=== PATIENT | male | born 1975 | race African-American/Black ===

== ENCOUNTER 2016-11-17 10:29 | Inpatient (IN) | payer OTHER ==
[~2016-11-17] VITALS: Ht 165.1 cm; Wt 76.8 kg
[~2016-11-17 10:29] MED LIST: ADVAIR 250-501 EACH IH; ALBUTEROL SULF8.5 GM IH; ALBUTEROL2.5 MG/3 M IH; ATIVAN2 MG PO; DAILY VALUE1 EACH PO; DELTASONE1 MG PO; EFFEXOR XR150 MG PO; ENALAPRIL MALEAT5 MG PO; FOLIC ACID1 MG PO; HYDROCHLOROTH12.5 M3 PO; HYDROCODON-ACE1 EAC7 PO; KEFLEX500 MG PO; LEVEMIR FL100 UNIT/1 SC; LEVOTHYROXINE50 MCG PO; LIBRIUM25 MG PO; MIRTAZAPINE15 MG PO; NAPROSYN500 MG PO; NAPROXEN500 MG PO; NICOTINE PATCH1 EAC2 TD; NICOTINE PATCH1 EACH TD; NOHOMEMEDS; NOVOLOG 10100 UNITS/ SC; OCUVITE TABLET1 EACH PO; OMEPRAZOLE20 MG PO; PANTOPRAZOLE SO40 MG PO; PAROXETINE HCL10 MG PO; PAXIL; PAXIL10 MG PO; PAXIL30 MG PO; PREDNISONE20 MG PO; PRILOSEC10 MG PO; PRILOSEC20 MG PO; PROAIR HFA8.5 GM IH; PROMETHAZINE HC25 M1 PO; PROVENTIL17 G1 IH; THIAMINE HCL100 MG PO; ULTRAM50 MG PO; VALIUM10 MG PO; VENTOLIN HFA18 GM IH; VITAMIN B-1100 MG PO; ZOLPIDEM TARTRAT5 MG PO
[2016-11-17 11:15] LABS: HEMATOCRIT 51.4 % (38.0-50.0); MCH 31.4 PG (29.0-34.0); MCHC 36.2 G/DL (30.0-36.0); MCV 86.7 FL (86-99); MEAN PLAT.VOLUME 12.8 uM^3 (9.0-12.4); PLATELET COUNT 274 K/uL (156-360); RBC DIS.WIDTH-CV 12.1 % (11.8-14.6); RBC DIS.WIDTH-SD 38.5 % (39-53); RED BLOOD COUNT 5.93 M/uL (4.00-5.50); WHITE BLOOD COUNT 13.3 K/uL (4.1-10.2)
[2016-11-17 11:26] LABS: CHLORIDE 91 mEq/L (99-109); POTASSIUM 3.5 mEq/L (3.7-5.4); SODIUM 137 mEq/L (136-147)
[2016-11-17 11:29] LABS: GLUCOSE 163 mg/dL (70-99)
[2016-11-17 11:30] LABS: ANION GAP 22 MEQ/L (2-14)
[2016-11-17 11:31] LABS: TOTAL BILIRUBIN 1.1 mg/dL (0.0-1.0)
[2016-11-17 11:32] LABS: ALKALINE PHOSPHATASE 117 IU/L (3-129); SERUM ETHYL ALCOHOL 190 mg/dL
[2016-11-17 11:33] LABS: GFR ESTIMATE (CALCULATED) > 59 mL/min/
[2016-11-17 11:34] LABS: UREA NITROGEN (BUN) 15 mg/dL (9-23)
[2016-11-17 11:50] LABS: ADD MIUA? YES; BILIRUBIN NEGATIVE; BLOOD NEGATIVE; COLOR AMBER ((YELLOW)); GLUCOSE (STRIP) >=500; KETONES 5; LEUKOCYTES NEGATIVE; NITRITE NEGATIVE; PROTEIN (STRIP) >=500; SPECIFIC GRAVITY 1.023 (1.000-1.030); UROBILINOGEN 0.2 MG/DL (0.2-1.0)
[2016-11-17 12:00] LABS: BACTERIA RARE /HPF; EPITHELIAL CELLS RARE /HPF; HYALINE CASTS 30-40 /LPF; MUCUS 1+ /LPF; RED BLOOD CELLS 0-5 /HPF (0-5); WHITE BLOOD CELLS 0-5 /HPF (0-5)
[2016-11-17 12:02] LABS: ADD MEDTOX COMMENT Y; AMPHETAMINE NEGATIVE (500 ng/mL); BARBITURATES NEGATIVE (200 ng/mL); BENZODIAZEPINES NEGATIVE (150 ng/mL); COCAINE NEGATIVE (150 ng/mL); INTERNAL CONTROLS VALID? YES; METHADONE NEGATIVE (200 ng/mL); METHAMPHETAMINE NEGATIVE (500 ng/mL); OPIATES (MORPHINE) PRESUMPTIVE POSITIVE (100 ng/mL); OXYCODONE NEGATIVE (100 ng/mL); PHENCYCLIDINE NEGATIVE (25 ng/mL); PROPOXYPHENE NEGATIVE (300 ng/mL); THC CANNABINOIDS NEGATIVE (50 ng/mL); TRICYCLIC ANTIDEPRESSANTS NEGATIVE (300 ng/mL)
[2016-11-17 12:41] LABS: OPIATES QUANTITATIVE VALUE 0 NG/ML
[2016-11-17 14:02] LABS: MAGNESIUM 2.3 mg/dL (1.3-2.7)
[2016-11-17] MEDS ORDERED: PRAZOSIN HCL2 MG PO (17:02)
[2016-11-17] MEDS ORDERED: NOVOLOG 10100 UNITS/ SC (17:02)
[2016-11-17] MEDS ORDERED: QUETIAPINE FUMA25 MG PO (17:03)
[2016-11-17] MEDS ORDERED: LISINOPRIL2.5 MG PO (17:03)
[2016-11-17] MEDS ORDERED: ATARAX,VISTARIL50 MG PO (17:03)
[2016-11-17] MEDS ORDERED: LAMOTRIGINE200 MG PO (17:03)
[2016-11-17] MEDS ORDERED: SAPHRIS10 MG SL (17:04)
[2016-11-17] MEDS ORDERED: OMEPRAZOLE40 M1 PO (17:04)
[2016-11-17] MEDS ORDERED: BUSPAR30 MG PO (17:04)
[2016-11-17 21:20] VITALS: BP 141/96
[2016-11-17 23:41] LABS: POINT-OF-CARE METER ID UU14174225
[2016-11-17 23:43] VITALS: BP 135/79
[2016-11-18 03:51] VITALS: BP 128/70
[2016-11-18 06:00] LABS: ANION GAP 8 MEQ/L (2-14); CHLORIDE 101 MEQ/L (99-109); GFR ESTIMATE (CALCULATED) > 59 mL/min/; MAGNESIUM 1.8 mg/dl (1.3-2.7); SAMPLE HEMOLYSIS CHECK 0; SAMPLE ICTERIC CHECK 0; SAMPLE LIPEMIA CHECK 0; SODIUM 138 MEQ/L (136-147); UREA NITROGEN (BUN) 13 mg/dL (9-23)
[2016-11-18 06:03] LABS: GLUCOSE 334 mg/dL (70-99); POTASSIUM 4.9 MEQ/L (3.7-5.4)
[2016-11-18 06:11] LABS: HEMATOCRIT 40.5 % (38.0-50.0); MCHC 34.8 G/DL (30.0-36.0); RBC DIS.WIDTH-CV 12.2 % (11.8-14.6); RBC DIS.WIDTH-SD 41.4 % (39-53); WHITE BLOOD COUNT 5.7 K/uL (4.1-10.2)
[2016-11-18 07:15] LABS: MEAN PLAT.VOLUME 11.1 uM^3 (9.0-12.4)
[2016-11-18 07:18] LABS: PLATELET COUNT 134 K/uL (156-360)
[2016-11-18 07:22] VITALS: BP 128/70
[2016-11-18 07:44] LABS: POINT-OF-CARE METER ID UU13113717
[2016-11-18 11:12] LABS: POINT-OF-CARE METER ID UU14174225
[2016-11-18 11:19] VITALS: BP 124/61
[2016-11-18] MEDS ORDERED: FOLIC ACID1 MG PO (12:45)
[2016-11-18] MEDS ORDERED: THERAGRAN1 TABLET PO (12:45)
[2016-11-18] MEDS ORDERED: Thiamine,Vitamin B1 PO (12:46)
[2016-11-18] MEDS ORDERED: CHLORDIAZEPOXID25 MG PO (12:46)
[2016-11-18 15:35] VITALS: BP 127/67
== END 2016-11-18 17:43 | disposition home or self-care (01) | DRG 897 ==
LOC: EME 10:29 → EDOF 17:08 → 5SOUTH 17:08
PROVIDERS: Emergency Medicine; Internal Medicine; Physician Assistant
DX: F10.239 Alcohol dependence with withdrawal, unspecified (principal); E87.2 Acidosis; E86.0 Dehydration; E87.6 Hypokalemia; E11.65 Type 2 diabetes mellitus with hyperglycemia; Y90.6 Blood alcohol level of 120-199 mg/100 ml; F31.9 Bipolar disorder, unspecified; I10 Essential (primary) hypertension; F17.210 Nicotine dependence, cigarettes, uncomplicated; J45.909 Unspecified asthma, uncomplicated; N28.9 Disorder of kidney and ureter, unspecified; K21.9 Gastro-esophageal reflux disease without esophagitis; Z79.4 Long term (current) use of insulin
CPT/HCPCS: 80048; 80053; 81003; 82948; 83605; 83735; 84999; 85027; 90839; 94640; 99281; 99284; G0480; J1650; J1815; J2060; J2405; J3411; J3480; J7030

== ENCOUNTER 2017-02-24 15:49 | Inpatient (IN) | payer OTHER ==
[~2017-02-24] VITALS: Ht 165.1 cm; Wt 67.3 kg
[~2017-02-24 15:49] MED LIST changes: +ATARAX,VISTARIL50 MG PO; +BUSPAR30 MG PO; +CHLORDIAZEPOXID25 MG PO; +LAMOTRIGINE200 MG PO; +LISINOPRIL2.5 MG PO; +OMEPRAZOLE40 M1 PO; +PRAZOSIN HCL2 MG PO; +SAPHRIS10 MG SL; +SEROQUEL100 MG PO; +THERAGRAN1 TABLET PO; +Thiamine,Vitamin B1 PO
[2017-02-24 16:26] LABS: ADD MIUA? YES; BILIRUBIN NEGATIVE; BLOOD SMALL; COLOR YELLOW ((YELLOW)); GLUCOSE (STRIP) >=500; KETONES 80; LEUKOCYTES NEGATIVE; NITRITE NEGATIVE; PROTEIN (STRIP) 100; SPECIFIC GRAVITY 1.023 (1.000-1.030); UROBILINOGEN 0.2 MG/DL (0.2-1.0)
[2017-02-24 16:33] LABS: EOSINOPHIL (%) 0 % (0-5); HEMATOCRIT 46.6 % (38.0-50.0); IMMATURE GRANULOCYTE (%) 1.2 % (0.0-0.7); IMMATURE GRANULOCYTE COUNT 0.2 K/uL; INSTRUMENT ABS NEUTROPHIL CT 13.1 K/uL; LYMPHOCYTE COUNT 1.1 K/uL (1.0-2.8); MCH 30.2 PG (29.0-34.0); MCHC 33.7 G/DL (30.0-36.0); MCV 89.6 FL (86-99); MONOCYTE COUNT 0.6 K/uL (0-0.8); NEUTROPHIL (%) 87.1 % (45-76); NEUTROPHIL COUNT 13.1 K/uL (1.8-6.4); PLATELET COUNT 436 K/uL (156-360); RBC DIS.WIDTH-CV 12.8 % (11.8-14.6); RBC DIS.WIDTH-SD 42.3 % (39-53); WHITE BLOOD COUNT 15.1 K/uL (4.1-10.2)
[2017-02-24 16:38] LABS: BACTERIA NONE SEEN /HPF; EPITHELIAL CELLS RARE /HPF; MUCUS TRACE /LPF; RED BLOOD CELLS 0-5 /HPF (0-5); UNCLASSIFIED CASTS 0-5 /LPF; WHITE BLOOD CELLS 0-5 /HPF (0-5)
[2017-02-24 16:40] LABS: CHLORIDE 88 mEq/L (99-109); POTASSIUM 5.4 mEq/L (3.7-5.4); SODIUM 132 mEq/L (136-147)
[2017-02-24 16:43] LABS: ANION GAP 37 MEQ/L (2-14)
[2017-02-24 16:44] LABS: TOTAL BILIRUBIN 1.1 mg/dL (0.0-1.0)
[2017-02-24 16:45] LABS: ALKALINE PHOSPHATASE 175 IU/L (3-129)
[2017-02-24 16:46] LABS: GFR ESTIMATE (CALCULATED) 58 mL/min/
[2017-02-24 16:47] LABS: UREA NITROGEN (BUN) 18 mg/dL (9-23)
[2017-02-24 16:50] LABS: GLUCOSE 547 mg/dL (70-99)
[2017-02-24] MEDS ORDERED: FAMOTIDINE20 MG PO (17:58)
[2017-02-24] MEDS ORDERED: THERAGRAN1 TABLET PO (17:58)
[2017-02-24] MEDS ORDERED: FOLIC ACID1 MG PO (17:58)
[2017-02-24] MEDS ORDERED: VITAMIN B-1100 MG PO (17:58)
[2017-02-24] MEDS ORDERED: LYRICA75 MG PO (17:59)
[2017-02-24] MEDS ORDERED: VENTOLIN HFA18 GM IH (17:59)
[2017-02-24 18:22] LABS: Estimated Average Glucose 344 mg/dL (70-123); HEMOGLOBIN A1c (GLYCOHEMOGLOB) 13.6 % HGB (Below 5.7)
[2017-02-24 18:45] LABS: POINT-OF-CARE METER ID UU13113702
[2017-02-24 19:21] LABS: POINT-OF-CARE METER ID UU13113702
[2017-02-24 19:45] VITALS: BP 162/99
[2017-02-24 19:54] VITALS: BP 162/99
[2017-02-24 20:00] VITALS: BP 162/94
[2017-02-24 20:02] LABS: POINT-OF-CARE METER ID UU14208751
[2017-02-24 20:59] LABS: POINT-OF-CARE METER ID UU13113748
[2017-02-24 21:00] VITALS: BP 159/88
[2017-02-24 21:07] LABS: METH RESISTANT S AUREUS PCR NEGATIVE (NEGATIVE)
[2017-02-24 21:10] LABS: PROBE CHECK PASS; SPECIMEN PROCESSING CONTROL PASS
[2017-02-24 22:00] VITALS: BP 151/95
[2017-02-24 22:26] LABS: POINT-OF-CARE METER ID UU14208751
[2017-02-24 23:00] VITALS: BP 115/66
[2017-02-24 23:02] LABS: POINT-OF-CARE METER ID UU14208751
[2017-02-25] VITALS (13 sets, daily range): BP systolic 117–148; BP diastolic 68–100
[2017-02-25 00:04] LABS: POINT-OF-CARE METER ID UU14208751
[2017-02-25 00:50] LABS: SODIUM 131 mEq/L (136-147)
[2017-02-25 00:54] LABS: ANION GAP 12 MEQ/L (2-14)
[2017-02-25 00:56] LABS: GFR ESTIMATE (CALCULATED) > 59 mL/min/
[2017-02-25 00:57] LABS: POINT-OF-CARE METER ID UU13113803
[2017-02-25 00:57] LABS: UREA NITROGEN (BUN) 10 mg/dL (9-23)
[2017-02-25 01:20] LABS: GLUCOSE 211 mg/dL (70-99); POTASSIUM 3.8 mEq/L (3.7-5.4)
[2017-02-25 01:21] LABS: CHLORIDE 100 mEq/L (99-109)
[2017-02-25 01:57] LABS: POINT-OF-CARE METER ID UU14208751
[2017-02-25 03:06] LABS: POINT-OF-CARE METER ID UU14208751
[2017-02-25 04:08] LABS: POINT-OF-CARE METER ID UU14208751
[2017-02-25 05:01] LABS: POINT-OF-CARE METER ID UU14208751
[2017-02-25 06:05] LABS: ANION GAP 11 MEQ/L (2-14); CHLORIDE 99 MEQ/L (99-109); POTASSIUM 3.7 MEQ/L (3.7-5.4); SAMPLE HEMOLYSIS CHECK 0; SAMPLE ICTERIC CHECK 0; SAMPLE LIPEMIA CHECK 0; SODIUM 135 MEQ/L (136-147)
[2017-02-25 06:08] LABS: POINT-OF-CARE METER ID UU14208751
[2017-02-25 06:10] LABS: GFR ESTIMATE (CALCULATED) > 59 mL/min/; UREA NITROGEN (BUN) 10 mg/dL (9-23)
[2017-02-25 06:11] LABS: GLUCOSE 118 mg/dL (70-99)
[2017-02-25 06:58] LABS: POINT-OF-CARE METER ID UU14208751
[2017-02-25 08:15] LABS: POINT-OF-CARE METER ID UU14208751
[2017-02-25 08:16] LABS: ANION GAP 11 MEQ/L (2-14); CHLORIDE 98 MEQ/L (99-109); POTASSIUM 3.8 MEQ/L (3.7-5.4); SAMPLE HEMOLYSIS CHECK 0; SAMPLE ICTERIC CHECK 0; SAMPLE LIPEMIA CHECK 0; SODIUM 133 MEQ/L (136-147)
[2017-02-25 08:22] LABS: GFR ESTIMATE (CALCULATED) > 59 mL/min/; GLUCOSE 168 mg/dL (70-99); UREA NITROGEN (BUN) 10 mg/dL (9-23)
[2017-02-25 09:19] LABS: POINT-OF-CARE METER ID UU14208751
[2017-02-25 10:14] LABS: POINT-OF-CARE METER ID UU14208751
[2017-02-25 12:05] LABS: POINT-OF-CARE METER ID UU14208751
[2017-02-25 13:39] LABS: ANION GAP 13 MEQ/L (2-14); CHLORIDE 99 MEQ/L (99-109); POTASSIUM 4.1 MEQ/L (3.7-5.4); SAMPLE HEMOLYSIS CHECK 0; SAMPLE ICTERIC CHECK 0; SAMPLE LIPEMIA CHECK 0; SODIUM 135 MEQ/L (136-147)
[2017-02-25 13:44] LABS: GFR ESTIMATE (CALCULATED) > 59 mL/min/; GLUCOSE 232 mg/dL (70-99); UREA NITROGEN (BUN) 9 mg/dL (9-23)
[2017-02-25 15:17] LABS: POINT-OF-CARE METER ID UU13113702
[2017-02-25 16:07] LABS: ANION GAP 10 MEQ/L (2-14); CHLORIDE 99 MEQ/L (99-109); POTASSIUM 4.1 MEQ/L (3.7-5.4); SAMPLE HEMOLYSIS CHECK 0; SAMPLE ICTERIC CHECK 0; SAMPLE LIPEMIA CHECK 0; SODIUM 133 MEQ/L (136-147)
[2017-02-25 16:12] LABS: GFR ESTIMATE (CALCULATED) > 59 mL/min/; GLUCOSE 308 mg/dL (70-99); UREA NITROGEN (BUN) 8 mg/dL (9-23)
[2017-02-25 20:26] LABS: ANION GAP 10 MEQ/L (2-14); CHLORIDE 99 MEQ/L (99-109); POTASSIUM 3.7 MEQ/L (3.7-5.4); SAMPLE HEMOLYSIS CHECK 0; SAMPLE ICTERIC CHECK 0; SAMPLE LIPEMIA CHECK 0; SODIUM 134 MEQ/L (136-147)
[2017-02-25 20:32] LABS: GFR ESTIMATE (CALCULATED) > 59 mL/min/; GLUCOSE 187 mg/dL (70-99); UREA NITROGEN (BUN) 7 mg/dL (9-23)
[2017-02-25 21:41] LABS: POINT-OF-CARE METER ID UU14117124
[2017-02-26 05:35] LABS: HEMATOCRIT 37.9 % (38.0-50.0); MCH 30.4 PG (29.0-34.0); MCHC 34.6 G/DL (30.0-36.0); MCV 87.9 FL (86-99); RBC DIS.WIDTH-CV 12.7 % (11.8-14.6); RBC DIS.WIDTH-SD 41.6 % (39-53); RED BLOOD COUNT 4.31 M/uL (4.00-5.50); WHITE BLOOD COUNT 7.7 K/uL (4.1-10.2)
[2017-02-26 05:56] LABS: ANION GAP 10 MEQ/L (2-14); CHLORIDE 103 MEQ/L (99-109); GFR ESTIMATE (CALCULATED) > 59 mL/min/; POTASSIUM 3.2 MEQ/L (3.7-5.4); SAMPLE HEMOLYSIS CHECK 0; SAMPLE ICTERIC CHECK 0; SAMPLE LIPEMIA CHECK 0; SODIUM 139 MEQ/L (136-147); UREA NITROGEN (BUN) 7 mg/dL (9-23)
[2017-02-26 05:57] LABS: GLUCOSE 60 mg/dL (70-99)
[2017-02-26 06:06] LABS: EOSINOPHIL (%) 0.5 % (0-5); IMMATURE GRANULOCYTE (%) 0.8 % (0.0-0.7); IMMATURE GRANULOCYTE COUNT 0.1 K/uL; INSTRUMENT ABS NEUTROPHIL CT 5.1 K/uL; MEAN PLAT.VOLUME 9.8 uM^3 (9.0-12.4); MONOCYTE COUNT 0.5 K/uL (0-0.8); NEUTROPHIL (%) 65.9 % (45-76); NEUTROPHIL COUNT 5.1 K/uL (1.8-6.4); PLAT.SUFFICIENCY ADEQUATE; PLATELET COUNT 256 K/uL (156-360)
[2017-02-26 07:00] LABS: POINT-OF-CARE METER ID UU14208753
[2017-02-26 07:41] VITALS: BP 128/83
[2017-02-26] MEDS ORDERED: OMEPRAZOLE40 M1 PO (11:03)
[2017-02-26] MEDS ORDERED: VENTOLIN HFA18 GM IH (11:03)
[2017-02-26] MEDS ORDERED: LISINOPRIL2.5 MG PO (11:03)
[2017-02-26] MEDS ORDERED: SEROQUEL100 MG PO (11:03)
[2017-02-26] MEDS ORDERED: LEVEMIR FL100 UNIT/1 SC (11:03)
[2017-02-26] MEDS ORDERED: PRAZOSIN HCL2 MG PO (11:03)
[2017-02-26] MEDS ORDERED: LAMOTRIGINE200 MG PO (11:03)
[2017-02-26] MEDS ORDERED: NOVOLOG 10100 UNITS/ SC (11:03)
[2017-02-26] MEDS ORDERED: LYRICA75 MG PO (11:03)
[2017-02-26] MEDS ORDERED: BUSPAR30 MG PO (11:03)
[2017-02-26] MEDS ORDERED: SAPHRIS10 MG SL (11:03)
[2017-02-26 11:53] LABS: POINT-OF-CARE METER ID UU14117124
== END 2017-02-26 14:47 | disposition home or self-care (01) | DRG 638 ==
LOC: EME 15:49 → 4WEST 17:37 → EDOF 17:37 → ENRESERV 17:43 → 4WEST 19:26 → ENRESERV 02-25 14:44 → 3EAST 02-25 18:07
PROVIDERS: Emergency Medicine; Hospitalist; Internal Medicine Critical Care Medicine
DX: E13.10 Other specified diabetes mellitus with ketoacidosis without coma (principal); E87.1 Hypo-osmolality and hyponatremia; E87.3 Alkalosis; E87.8 Other disorders of electrolyte and fluid balance, not elsewhere classified; E86.0 Dehydration; E86.1 Hypovolemia; Z79.4 Long term (current) use of insulin; F41.9 Anxiety disorder, unspecified; I10 Essential (primary) hypertension; G43.909 Migraine, unspecified, not intractable, without status migrainosus; F17.200 Nicotine dependence, unspecified, uncomplicated; J45.909 Unspecified asthma, uncomplicated; K21.9 Gastro-esophageal reflux disease without esophagitis; D75.89 Other specified diseases of blood and blood-forming organs
CPT/HCPCS: 71020; 80048; 80048 91; 80053; 81003; 82010; 82948; 83036; 84100; 85025; 87641; 90686; 94640; 94640 76; 94760; 99202; 99281; 99285; J1815; J2405; J2765; J7040; J7050; J7120

== ENCOUNTER → 2017-07-06 | Outpatient (CLI) | payer OTHER ==
[~2017-07-06] MED LIST changes: +FAMOTIDINE20 MG PO; +LYRICA75 MG PO
== END | disposition home or self-care (01) ==
LOC: CDC 13:23
DX: I51.7 Cardiomegaly (principal); R94.31 Abnormal electrocardiogram [ECG] [EKG]
CPT/HCPCS: 93000

== ENCOUNTER 2018-01-16 01:10 | Inpatient (IN) | payer OTHER ==
[~2018-01-16] VITALS: Ht 175.3 cm; Wt 94.1 kg
[2018-01-16] VITALS (10 sets, daily range): BP systolic 55–133; BP diastolic 36–61
[2018-01-16 01:38] LABS: DEVICE VENT; FI02 100 %; MECHANICAL RATE 16 resp/min; MODE AC; PEEP 5 CM/H20; SITE RR; TIDAL VOLUME 450 ML; TOTAL RESP RATE 16 resp/min
[2018-01-16 01:39] LABS: COMMENTS - BLOOD GASES C+ DR IS AWARE; pH < 6.91 (7.35-7.45)
[2018-01-16 01:40] LABS: CARBOXY HGB 1.8 % (0-5); METHEMOGLOBIN 0.7 % (0-1.5); PO2 173 mm Hg (80-100)
[2018-01-16 01:41] LABS: HEMOGLOBIN 12.4 G/DL (12.5-16.6); MCH 32.9 PG (29.0-34.0); MCHC 30.2 G/DL (30.0-36.0); MCV 108.8 FL (86-99); NRBC (%) 0.2 /100 WBC (0-0); PLATELET COUNT 208 K/uL (156-360); RBC DIS.WIDTH-CV 12.2 % (11.8-14.6); RBC DIS.WIDTH-SD 49.6 % (39-53); RED BLOOD COUNT 3.77 M/uL (4.00-5.50); WHITE BLOOD COUNT 16.5 K/uL (4.1-10.2)
[2018-01-16 01:43] LABS: ALBUMIN 3.2 g/dL (3.2-4.8); CHLORIDE < 64 mEq/L (99-109)
[2018-01-16 01:46] LABS: TOTAL PROTEIN 5.4 g/dL (6.4-8.3)
[2018-01-16 01:47] LABS: TOTAL BILIRUBIN 1.4 mg/dL (0.0-1.0)
[2018-01-16 01:48] LABS: SERUM ETHYL ALCOHOL < 10 mg/dL
[2018-01-16 01:49] LABS: ALKALINE PHOSPHATASE 144 IU/L (3-129); CREATININE 5.2 mg/dL (0.6-1.3); GFR ESTIMATE (CALCULATED) 16 mL/min/ (58.99-99999)
[2018-01-16 01:50] LABS: UREA NITROGEN (BUN) 51 mg/dL (9-23)
[2018-01-16 01:51] LABS: AST (GOT) 479 IU/L (2-34)
[2018-01-16 01:52] LABS: ALT (GPT) 130 IU/L (3-49)
[2018-01-16 01:58] LABS: TROP-I INTERPRETATION NEGATIVE; TROPONIN-I 0.05 ng/mL (0.0-0.30)
[2018-01-16 02:02] LABS: GLUCOSE 1495 mg/dL (70-99); POTASSIUM 6.1 mEq/L (3.7-5.4); SODIUM 107 mEq/L (136-147)
[2018-01-16 03:13] LABS: DEVICE VENT; SITE RR
[2018-01-16 03:14] LABS: CARBOXY HGB 1.9 % (0-5); FI02 100 %; MECHANICAL RATE 22 resp/min; METHEMOGLOBIN 1.3 % (0-1.5); MODE AC; PCO2 55 mm Hg (35-45); PEEP 5 CM/H20; PO2 75 mm Hg (80-100); TIDAL VOLUME 450 ML; TOTAL RESP RATE 22 resp/min; pH < 6.91 (7.35-7.45)
[2018-01-16 03:15] LABS: COMMENTS - BLOOD GASES C+ DR IS AWARE
[2018-01-16 04:11] LABS: BICARBONATE 9.4 mEq/L (22-26); CARBOXY HGB 1.2 % (0-5); COMMENTS - BLOOD GASES C+; DEVICE VENT; FI02 100 %; INSPIRATION TIME 0.6 seconds; MECHANICAL RATE 30 resp/min; METHEMOGLOBIN 1.1 % (0-1.5); MODE AC; PCO2 41 mm Hg (35-45); PEEP 5 CM/H20; PO2 269 mm Hg (80-100); SITE A-LINE; TIDAL VOLUME 500 ML; TOTAL RESP RATE 30 resp/min
[2018-01-16 04:12] LABS: BASE EXCESS -21.8 mEq/L (-3 to +3); pH 6.97 (7.35-7.45)
[2018-01-16 04:53] LABS: CHLORIDE 64 mEq/L (99-109); POTASSIUM 4.9 mEq/L (3.7-5.4)
[2018-01-16 04:58] LABS: CREATININE 4.7 mg/dL (0.6-1.3); GFR ESTIMATE (CALCULATED) 18 mL/min/ (58.99-99999); PHOSPHORUS 17.7 mg/dL (2.5-4.9)
[2018-01-16 04:59] LABS: UREA NITROGEN (BUN) 52 mg/dL (9-23)
[2018-01-16 05:02] LABS: GLUCOSE 1294 mg/dL (70-99); SODIUM 116 mEq/L (136-147)
[2018-01-16 05:16] LABS: TRIGLYCERIDES 702 MG/DL (Normal: <150)
[2018-01-16 05:20] LABS: BASE EXCESS -20.2 mEq/L (-3 to +3); BICARBONATE 10.1 mEq/L (22-26); CARBOXY HGB 1.3 % (0-5); COMMENTS - BLOOD GASES C+; DEVICE VENT; FI02 100 %; INSPIRATION TIME 0.6 seconds; MECHANICAL RATE 30 resp/min; MODE AC; PCO2 39 mm Hg (35-45); PEEP 5 CM/H20; PO2 138 mm Hg (80-100); SITE A-LINE; TIDAL VOLUME 500 ML; TOTAL RESP RATE 30 resp/min
[2018-01-16 05:21] LABS: pH 7.02 (7.35-7.45)
[2018-01-16 06:42] LABS: BASE EXCESS -16.8 mEq/L (-3 to +3); BICARBONATE 12.4 mEq/L (22-26); CARBOXY HGB 1.5 % (0-5); COMMENTS - BLOOD GASES C+; DEVICE VENT; FI02 100 %; INSPIRATION TIME 0.6 seconds; MECHANICAL RATE 30 resp/min; METHEMOGLOBIN 1.1 % (0-1.5); MODE AC; PCO2 41 mm Hg (35-45); PEEP 5 CM/H20; PO2 73 mm Hg (80-100); SITE A-LINE; TIDAL VOLUME 500 ML; TOTAL RESP RATE 30 resp/min
[2018-01-16 06:43] LABS: pH 7.09 (7.35-7.45)
[2018-01-16 06:57] LABS: GLUCOSE 1195 mg/dL (70-99)
[2018-01-16 09:07] LABS: CHLORIDE 70 MEQ/L (99-109); GFR ESTIMATE (CALCULATED) 21 mL/min/ (58.99-99999); PHOSPHORUS 11.5 mg/dL (2.5-4.9); UREA NITROGEN (BUN) 57 mg/dL (9-23)
[2018-01-16 09:09] LABS: GLUCOSE 1397 mg/dL (70-99); POTASSIUM 3.9 MEQ/L (3.7-5.4); SODIUM 119 MEQ/L (136-147)
[2018-01-16 09:21] LABS: INTER. NORMALIZED RATIO 1.1
[2018-01-16 09:24] LABS: PTT 24.7 SEC (25-37)
[2018-01-16 10:18] LABS: GLUCOSE 1392 mg/dL (70-99)
[2018-01-16 10:27] LABS: COMMENTS - BLOOD GASES C+ANA; DEVICE PB VENT; FI02 100 %; MECHANICAL RATE 30 resp/min; MODE AC; PCO2 45 mm Hg (35-45); PEEP 10 CM/H20; PO2 63 mm Hg (80-100); PRES. SUPPORT 550 CM/H2O; SITE ALINE; TOTAL RESP RATE 36 resp/min; pH 7.24 (7.35-7.45)
[2018-01-16 10:28] LABS: BICARBONATE 19.3 mEq/L (22-26); CARBOXY HGB 1.3 % (0-5); METHEMOGLOBIN 1.3 % (0-1.5); O2 SATURATION (CALCULATED) 90.6 % (95-99)
[2018-01-16 11:08] LABS: GLUCOSE 1233 mg/dL (70-99)
[2018-01-16 12:34] LABS: POTASSIUM 3.2 mEq/L (3.7-5.4); SODIUM 121 mEq/L (136-147)
[2018-01-16 12:35] LABS: MAGNESIUM 2.3 mg/dL (1.3-2.7)
[2018-01-16 12:36] LABS: CHLORIDE 84 mEq/L (99-109)
[2018-01-16 12:40] LABS: CREATININE 4.3 mg/dL (0.6-1.3); GFR ESTIMATE (CALCULATED) 20 mL/min/ (58.99-99999); PHOSPHORUS 1.8 mg/dL (2.5-4.9)
[2018-01-16 12:41] LABS: UREA NITROGEN (BUN) 58 mg/dL (9-23)
[2018-01-16 12:42] LABS: CREATINE KINASE 741 IU/L (1-294)
[2018-01-16 12:44] LABS: GLUCOSE 1084 mg/dL (70-99)
[2018-01-16 12:51] LABS: INTER. NORMALIZED RATIO 1.3
[2018-01-16 14:33] LABS: GLUCOSE 1024 mg/dL (70-99)
[2018-01-16 16:02] LABS: CHLORIDE 83 mEq/L (99-109); POTASSIUM 3.5 mEq/L (3.7-5.4); SODIUM 121 mEq/L (136-147)
[2018-01-16 16:08] LABS: CREATININE 4.3 mg/dL (0.6-1.3); GFR ESTIMATE (CALCULATED) 20 mL/min/ (58.99-99999)
[2018-01-16 16:09] LABS: UREA NITROGEN (BUN) 58 mg/dL (9-23)
[2018-01-16 16:12] LABS: GLUCOSE 1000 mg/dL (70-99); PHOSPHORUS 2.8 mg/dL (2.5-4.9)
[2018-01-16 16:39] LABS: ALBUMIN 2.9 g/dL (3.2-4.8)
[2018-01-16 17:24] LABS: GLUCOSE 993 mg/dL (70-99)
[2018-01-16 18:04] LABS: INTER. NORMALIZED RATIO 1.2
[2018-01-16 18:13] LABS: CHLORIDE 83 mEq/L (99-109); POTASSIUM 3.3 mEq/L (3.7-5.4); SODIUM 125 mEq/L (136-147)
[2018-01-16 18:14] LABS: MAGNESIUM 2.7 mg/dL (1.3-2.7)
[2018-01-16 18:19] LABS: PHOSPHORUS 2.5 mg/dL (2.5-4.9)
[2018-01-16 18:20] LABS: CREATININE 4.4 mg/dL (0.6-1.3); GFR ESTIMATE (CALCULATED) 19 mL/min/ (58.99-99999); UREA NITROGEN (BUN) 58 mg/dL (9-23)
[2018-01-16 18:22] LABS: GLUCOSE 985 mg/dL (70-99)
[2018-01-16 18:23] LABS: CREATINE KINASE 1097 IU/L (1-294)
[2018-01-16 19:22] LABS: CHLORIDE 84 mEq/L (99-109)
[2018-01-16 19:23] LABS: SODIUM 124 mEq/L (136-147)
[2018-01-16 19:28] LABS: CREATININE 4.4 mg/dL (0.6-1.3); GFR ESTIMATE (CALCULATED) 19 mL/min/ (58.99-99999)
[2018-01-16 19:29] LABS: UREA NITROGEN (BUN) 58 mg/dL (9-23)
[2018-01-16 19:37] LABS: GLUCOSE 937 mg/dL (70-99)
[2018-01-16 19:56] LABS: BASE EXCESS -8.1 mEq/L (-3 to +3); BICARBONATE 18.9 mEq/L (22-26); CARBOXY HGB 1.2 % (0-5); COMMENTS - BLOOD GASES C+; DEVICE VENT; FI02 100 %; INSPIRATION TIME 0.6 seconds; MECHANICAL RATE 30 resp/min; METHEMOGLOBIN 1.6 % (0-1.5); MODE AC; PCO2 43 mm Hg (35-45); PEEP 10 CM/H20; PO2 85 mm Hg (80-100); SITE A-LINE; TIDAL VOLUME 550 ML; TOTAL RESP RATE 30 resp/min
[2018-01-16 19:57] LABS: pH 7.25 (7.35-7.45)
[2018-01-16 21:49] LABS: GLUCOSE 875 mg/dL (70-99)
[2018-01-16 23:30] LABS: GLUCOSE 827 mg/dL (70-99)
[2018-01-17 00:11] LABS: BASE EXCESS -9.7 mEq/L (-3 to +3); BICARBONATE 18 mEq/L (22-26); CARBOXY HGB 1.3 % (0-5); COMMENTS - BLOOD GASES C+; DEVICE VENT; FI02 80 %; INSPIRATION TIME 0.6 seconds; MECHANICAL RATE 30 resp/min; METHEMOGLOBIN 0.9 % (0-1.5); MODE AC; PCO2 45 mm Hg (35-45); PEEP 10 CM/H20; PO2 51 mm Hg (80-100); SITE A-LINE; TIDAL VOLUME 550 ML; TOTAL RESP RATE 30 resp/min; pH 7.21 (7.35-7.45)
[2018-01-17 01:01] LABS: INTER. NORMALIZED RATIO 1.4
[2018-01-17 01:05] LABS: SODIUM 128 mEq/L (136-147)
[2018-01-17 01:11] LABS: CREATININE 4.1 mg/dL (0.6-1.3); GFR ESTIMATE (CALCULATED) 21 mL/min/ (58.99-99999)
[2018-01-17 01:12] LABS: UREA NITROGEN (BUN) 61 mg/dL (9-23)
[2018-01-17 01:13] LABS: GLUCOSE 734 mg/dL (70-99); PHOSPHORUS 1.3 mg/dL (2.5-4.9)
[2018-01-17 01:14] LABS: CREATINE KINASE 954 IU/L (1-294); POTASSIUM 2.1 mEq/L (3.7-5.4)
[2018-01-17 01:15] LABS: CHLORIDE 96 mEq/L (99-109); MAGNESIUM 2.2 mg/dL (1.3-2.7)
[2018-01-17 02:23] LABS: GLUCOSE 752 mg/dL (70-99)
[2018-01-17 03:37] LABS: GLUCOSE 705 mg/dL (70-99)
[2018-01-17 04:39] LABS: GLUCOSE 594 mg/dL (70-99)
[2018-01-17 06:05] LABS: BASE EXCESS -11.8 mEq/L (-3 to +3); BICARBONATE 14.6 mEq/L (22-26); CARBOXY HGB 0.9 % (0-5); COMMENTS - BLOOD GASES C+; DEVICE VENT; FI02 80 %; INSPIRATION TIME 0.6 seconds; MECHANICAL RATE 30 resp/min; METHEMOGLOBIN 1.3 % (0-1.5); MODE AC; PCO2 34 mm Hg (35-45); PEEP 12 CM/H20; PO2 85 mm Hg (80-100); SITE A-LINE; TIDAL VOLUME 550 ML; TOTAL RESP RATE 30 resp/min; pH 7.24 (7.35-7.45)
[2018-01-17 06:27] LABS: INTER. NORMALIZED RATIO 1.4
[2018-01-17 06:51] LABS: ALBUMIN 2.1 G/DL (3.2-4.8); ALKALINE PHOSPHATASE 119 IU/L (3-129); ALT (GPT) 298 IU/L (3-49); AST (GOT) 888 IU/L (2-34); CREATINE KINASE 697 IU/L (1-294); CREATININE 3.7 MG/DL (0.6-1.3); GFR ESTIMATE (CALCULATED) 23 mL/min/ (58.99-99999); SODIUM 131 MEQ/L (136-147); TOTAL BILIRUBIN 2.7 MG/DL (0.0-1.0); TOTAL PROTEIN 3.3 G/DL (6.4-8.3); UREA NITROGEN (BUN) 58 mg/dL (9-23)
[2018-01-17 07:01] LABS: CHLORIDE 100 MEQ/L (99-109); GLUCOSE 450 mg/dL (70-99); POTASSIUM 2.7 MEQ/L (3.7-5.4)
[2018-01-17 07:08] LABS: CREATININE 3.8 MG/DL (0.6-1.3); GFR ESTIMATE (CALCULATED) 23 mL/min/ (58.99-99999); MAGNESIUM 1.9 mg/dl (1.3-2.7); SODIUM 131 MEQ/L (136-147); UREA NITROGEN (BUN) 56 mg/dL (9-23)
[2018-01-17 07:14] LABS: CHLORIDE 99 MEQ/L (99-109); GLUCOSE 447 mg/dL (70-99); PHOSPHORUS 3.9 mg/dL (2.5-4.9); POTASSIUM 2.7 MEQ/L (3.7-5.4)
[2018-01-17 07:21] LABS: HEMOGLOBIN 12.8 G/DL (12.5-16.6); MCH 32.7 PG (29.0-34.0); RBC DIS.WIDTH-SD 36.4 % (39-53); RED BLOOD COUNT 3.91 M/uL (4.00-5.50); WHITE BLOOD COUNT 3.4 K/uL (4.1-10.2)
[2018-01-17 07:26] LABS: MCHC 36.3 G/DL (30.0-36.0); MCV 90.3 FL (86-99)
[2018-01-17 07:43] LABS: PLATELET COUNT UNABLE TO REPORT K/uL (156-360)
[2018-01-17 10:00] VITALS: BP 111/53
[2018-01-17 10:56] LABS: HEMOGLOBIN A1c (GLYCOHEMOGLOB) 11.6 % (Below 5.7)
[2018-01-17 13:15] LABS: INTER. NORMALIZED RATIO 1.7
[2018-01-17 14:54] LABS: CHLORIDE 104 MEQ/L (99-109); CREATINE KINASE 992 IU/L (1-294); CREATININE 3.6 MG/DL (0.6-1.3); GFR ESTIMATE (CALCULATED) 24 mL/min/ (58.99-99999); MAGNESIUM 1.7 mg/dl (1.3-2.7); PHOSPHORUS 3.4 mg/dL (2.5-4.9); POTASSIUM 2.8 MEQ/L (3.7-5.4); SODIUM 137 MEQ/L (136-147); UREA NITROGEN (BUN) 58 mg/dL (9-23)
[2018-01-17 14:55] LABS: GLUCOSE 133 mg/dL (70-99)
[2018-01-17 16:29] LABS: AMYLASE 205 IU/L (1-118); LIPASE 624 U/L (1.0-51.0); TRIGLYCERIDES 106 MG/DL (Normal: <150)
[2018-01-17 16:31] LABS: HIGH-SENS C-REACTIVE PROTEIN > 8.00 MG/DL (0.02-0.20)
[2018-01-17 18:00] VITALS: BP 105/870
[2018-01-17 18:46] LABS: CHLORIDE 104 mEq/L (99-109); POTASSIUM 3.3 mEq/L (3.7-5.4); SODIUM 134 mEq/L (136-147)
[2018-01-17 18:47] LABS: MAGNESIUM 2.1 mg/dL (1.3-2.7)
[2018-01-17 18:52] LABS: CREATININE 3.8 mg/dL (0.6-1.3); GFR ESTIMATE (CALCULATED) 23 mL/min/ (58.99-99999)
[2018-01-17 18:53] LABS: UREA NITROGEN (BUN) 57 mg/dL (9-23)
[2018-01-17 18:58] LABS: CREATINE KINASE 1302 IU/L (1-294); GLUCOSE 334 mg/dL (70-99); PHOSPHORUS 3.2 mg/dL (2.5-4.9)
[2018-01-17 19:54] LABS: DEVICE VENT; FI02 70 %; MECHANICAL RATE 30 resp/min; MODE ACVC; SITE ALINE
[2018-01-17 19:55] LABS: PEEP 12 CM/H20; TIDAL VOLUME 550 ML; TOTAL RESP RATE 30 resp/min
[2018-01-17 19:56] LABS: BASE EXCESS -7.9 mEq/L (-3 to +3); BICARBONATE 16.2 mEq/L (22-26); CARBOXY HGB 1.1 % (0-5); METHEMOGLOBIN 1.7 % (0-1.5); O2 SATURATION (CALCULATED) 99.4 % (95-99); PCO2 28 mm Hg (35-45); PO2 112 mm Hg (80-100); pH 7.37 (7.35-7.45)
[2018-01-17 20:00] VITALS: BP 100/71
[2018-01-17 21:19] LABS: CHLORIDE 104 mEq/L (99-109); SODIUM 137 mEq/L (136-147)
[2018-01-17 21:24] LABS: CREATININE 3.9 mg/dL (0.6-1.3); GFR ESTIMATE (CALCULATED) 22 mL/min/ (58.99-99999)
[2018-01-17 21:25] LABS: UREA NITROGEN (BUN) 57 mg/dL (9-23)
[2018-01-17 21:26] LABS: GLUCOSE 72 mg/dL (70-99)
[2018-01-18 00:50] LABS: INTER. NORMALIZED RATIO 2.1
[2018-01-18 01:13] LABS: CHLORIDE 104 mEq/L (99-109)
[2018-01-18 01:14] LABS: POTASSIUM 3.2 mEq/L (3.7-5.4); SODIUM 135 mEq/L (136-147)
[2018-01-18 01:19] LABS: CREATININE 4.1 mg/dL (0.6-1.3); GFR ESTIMATE (CALCULATED) 21 mL/min/ (58.99-99999)
[2018-01-18 01:20] LABS: UREA NITROGEN (BUN) 58 mg/dL (9-23)
[2018-01-18 01:23] LABS: GLUCOSE 137 mg/dL (70-99); MAGNESIUM 1.7 mg/dL (1.3-2.7); PHOSPHORUS 1.3 mg/dL (2.5-4.9)
[2018-01-18 01:24] LABS: CREATINE KINASE 1727 IU/L (1-294)
[2018-01-18 08:38] LABS: CHLORIDE 105 MEQ/L (99-109); CREATININE 4.3 MG/DL (0.6-1.3); GFR ESTIMATE (CALCULATED) 20 mL/min/ (58.99-99999); GLUCOSE 125 mg/dL (70-99); MAGNESIUM 1.7 mg/dl (1.3-2.7); PHOSPHORUS 3.2 mg/dL (2.5-4.9); SODIUM 137 MEQ/L (136-147); UREA NITROGEN (BUN) 58 mg/dL (9-23)
[2018-01-18 08:39] LABS: CREATINE KINASE 1773 IU/L (1-294); POTASSIUM 3.9 MEQ/L (3.7-5.4)
[2018-01-18 08:54] LABS: HEMATOCRIT 25.2 % (38.0-50.0); MCH 32.6 PG (29.0-34.0); MCHC 38.9 G/DL (30.0-36.0); NRBC (%) 0.3 /100 WBC (0-0); RBC DIS.WIDTH-CV 12.4 % (11.8-14.6); RBC DIS.WIDTH-SD 37.6 % (39-53); WHITE BLOOD COUNT 6.5 K/uL (4.1-10.2)
[2018-01-18 09:01] LABS: ALBUMIN 2.2 G/DL (3.2-4.8); ALT (GPT) 223 IU/L (3-49); AST (GOT) 709 IU/L (2-34); TOTAL BILIRUBIN 2.9 MG/DL (0.0-1.0)
[2018-01-18 09:02] LABS: ALKALINE PHOSPHATASE 180 IU/L (3-129)
[2018-01-18 09:06] LABS: HEMOGLOBIN 9.8 G/DL (12.5-16.6); MCV 83.7 FL (86-99); RED BLOOD COUNT 3.01 M/uL (4.00-5.50)
[2018-01-18 09:07] LABS: ABS NEUTROPHIL COUNT 4.3; ANISOCYTOSIS 1+; ATYPICAL LYMPHOCYTE 0.9 %; BAND NEUTROPHILS 46.9 % (0-8.0); BURR CELLS 3+; EOSINOPHIL ABS CT 0.3; EOSINOPHILS 5.2 % (0-5.0); LYMPHOCYTES 14.8 % (15.0-45.0); MACROCYTES 1+; METAMYELOCYTES 12.2 %; MYELOCYTES 0.9 %; NUCLEATED RBC'S 0.9; PLAT.SUFFICIENCY VERY DECREASED; POIKILOCYTOSIS 3+; POLYCHROMASIA 1+; SEG.NEUTROPHILS 19.1 % (46.0-76.0)
[2018-01-18 09:17] LABS: PLATELET COUNT 24 K/uL (156-360)
[2018-01-18 10:30] VITALS: BP 156/116
[2018-01-18 10:38] LABS: CARBOXY HGB 1.1 % (0-5); COMMENTS - BLOOD GASES A+C+; DEVICE AMBU; FI02 100 %; PCO2 60 mm Hg (35-45); PO2 132 mm Hg (80-100); SITE LR; TOTAL RESP RATE 20 resp/min; pH 7.22 (7.35-7.45)
[2018-01-18 10:39] LABS: BASE EXCESS -3.3 mEq/L (-3 to +3); BICARBONATE 24.6 mEq/L (22-26); METHEMOGLOBIN 1.2 % (0-1.5)
[2018-01-18 10:54] LABS: CHLORIDE 102 mEq/L (99-109); POTASSIUM 4.3 mEq/L (3.7-5.4); SODIUM 141 mEq/L (136-147)
[2018-01-18 10:55] LABS: MAGNESIUM 1.8 mg/dL (1.3-2.7)
[2018-01-18 10:57] LABS: GLUCOSE 276 mg/dL (70-99)
[2018-01-18 11:00] LABS: CREATININE 4.6 mg/dL (0.6-1.3); GFR ESTIMATE (CALCULATED) 18 mL/min/ (58.99-99999)
[2018-01-18 11:01] LABS: UREA NITROGEN (BUN) 56 mg/dL (9-23)
[2018-01-18 11:51] LABS: HEMATOCRIT 21.1 % (38.0-50.0); HEMOGLOBIN 8.2 G/DL (12.5-16.6); MCH 33.2 PG (29.0-34.0); MCHC 38.9 G/DL (30.0-36.0); MCV 85.4 FL (86-99); NRBC (%) 0.7 /100 WBC (0-0); RBC DIS.WIDTH-CV 12.5 % (11.8-14.6); RBC DIS.WIDTH-SD 38.7 % (39-53); RED BLOOD COUNT 2.47 M/uL (4.00-5.50); WHITE BLOOD COUNT 10.3 K/uL (4.1-10.2)
[2018-01-18 11:54] LABS: IMM.PLATELET FRACTION 12.6 (1-7); PLAT.SUFFICIENCY VERY DECREASED
[2018-01-18 11:57] LABS: PLATELET COUNT 18 K/uL (156-360)
[2018-01-18 12:00] VITALS: BP 131/73
[2018-01-18 12:50] LABS: COMMENTS - BLOOD GASES C+; DEVICE 980; FI02 100 %; INSPIRATION TIME 0.6 seconds; MECHANICAL RATE 30 resp/min; MODE AC; SITE ALINE; TOTAL RESP RATE 33 resp/min
[2018-01-18 12:51] LABS: BICARBONATE 15.3 mEq/L (22-26); CARBOXY HGB 1.1 % (0-5); METHEMOGLOBIN 1.9 % (0-1.5); PCO2 27 mm Hg (35-45); PEEP 10 CM/H20; PO2 83 mm Hg (80-100); TIDAL VOLUME 550 ML; pH 7.36 (7.35-7.45)
[2018-01-18 17:54] LABS: INTER. NORMALIZED RATIO 1.6
[2018-01-18 17:56] LABS: CHLORIDE 104 mEq/L (99-109); MAGNESIUM 1.8 mg/dL (1.3-2.7); SODIUM 139 mEq/L (136-147)
[2018-01-18 17:58] LABS: GLUCOSE 240 mg/dL (70-99); POTASSIUM 5.4 mEq/L (3.7-5.4)
[2018-01-18 18:02] LABS: CREATININE 4.9 mg/dL (0.6-1.3); GFR ESTIMATE (CALCULATED) 17 mL/min/ (58.99-99999); PHOSPHORUS 7.1 mg/dL (2.5-4.9); UREA NITROGEN (BUN) 62 mg/dL (9-23)
[2018-01-18 18:11] LABS: CREATINE KINASE 3507 IU/L (1-294)
[2018-01-18 20:02] VITALS: BP 88/51
[2018-01-19 00:01] VITALS: BP 86/45
[2018-01-19 03:47] VITALS: BP 0/0
== END 2018-01-19 09:56 | DRG 871 ==
LOC: EME 01:10 → 4WEST 02:09 → EDOF 02:09 → ENRESERV 02:11 → ENRESERVDT 02:24 → ENRESERVTM 02:24 → ENRESERV 02:24 → 4WEST 03:34
PROVIDERS: Emergency Medicine; Internal Medicine; Internal Medicine Critical Care Medicine; Internal Medicine Nephrology; Surgery
PROC: 5A1945Z Respiratory Ventilation, 24-96 Consecutive Hours (ICD-10-PCS; principal; 2018-01-16)
PROC: 04HY32Z Insertion of Monitoring Device into Lower Artery, Percutaneous Approach (ICD-10-PCS; principal; 2018-01-16)
PROC: 02HV33Z Insertion of Infusion Device into Superior Vena Cava, Percutaneous Approach (ICD-10-PCS; 2018-01-17)
DX: A41.9 Sepsis, unspecified organism (principal); R65.21 Severe sepsis with septic shock; J18.9 Pneumonia, unspecified organism; I46.9 Cardiac arrest, cause unspecified; N17.0 Acute kidney failure with tubular necrosis; E11.11 Type 2 diabetes mellitus with ketoacidosis with coma; G93.1 Anoxic brain damage, not elsewhere classified; T17.918A Gastric contents in respiratory tract, part unspecified causing other injury, initial encounter; E87.4 Mixed disorder of acid-base balance; I47.2 Ventricular tachycardia; I95.9 Hypotension, unspecified; E87.5 Hyperkalemia; E87.1 Hypo-osmolality and hyponatremia; M62.82 Rhabdomyolysis; K76.89 Other specified diseases of liver; R56.9 Unspecified convulsions; E83.51 Hypocalcemia; Z66 Do not resuscitate; R00.1 Bradycardia, unspecified; K21.9 Gastro-esophageal reflux disease without esophagitis; J45.909 Unspecified asthma, uncomplicated; E86.0 Dehydration; E87.6 Hypokalemia; F10.20 Alcohol dependence, uncomplicated; F31.9 Bipolar disorder, unspecified; F41.9 Anxiety disorder, unspecified; F17.200 Nicotine dependence, unspecified, uncomplicated; Z79.4 Long term (current) use of insulin
CPT/HCPCS: 36600; 70450; 70551; 71045; 80048; 80048 91; 80053; 82040; 82150; 82330; 82550; 82550 91; 82943 90; 82948; 83036; 83605; 83690; 83735; 83930; 84100; 84145 90; 84478; 84484; 84999; 85025; 85027; 85610; 85730; 86141; 87040; 87070; 87205; 87641; 93005; 94002; 94003; 94640; 94799; 95819; 99281; 99285; C1751; G0480; J0153; J0171; J0636; J1265; J1644; J1815; J1953; J2060; J2543; J2704; J3010; J3370; J3475; J3480; J7030; J7040; J7042; J7050; P9045; S0028